=== PATIENT | female | born 1990 | race American Indian/Alaskan Native ===

== ENCOUNTER 2019-06-23 16:39 | Outpatient (CLI) | payer OTHER ==
[2019-06-23] MEDS ORDERED: LACTATED RINGERS 1,000 ML IV SCH (17:00)
[2019-06-23 17:01] LABS: Bacteria,Urine 1+ /HPF (Negative); Bilirubin,Urine NEG (Negative); Blood,Urine NEG (Negative); Color,Urine Yellow (Yellow); Mucus,Urine 1+ /HPF; Protein,Urine <15 mg/dL mg/dL (Negative); Urobilinogen,Urine < 2.0 mg/dL (<2.0)
[2019-06-23 19:00] VITALS: BP 126/74
== END 2019-06-23 19:44 | disposition home or self-care (01) ==
LOC: TRG 16:39
PROVIDERS: ATTEND Obstetrics & Gynecology
DX: O26.853 Spotting complicating pregnancy, third trimester (principal); Z3A.29 29 weeks gestation of pregnancy
CPT/HCPCS: 81001; 96360; 96361; J7120

== ENCOUNTER 2019-09-07 17:44 | Outpatient (CLI) | payer OTHER ==
[2019-09-07] MEDS ORDERED: NITRAZINE (URINE TESTING PAPER) MC ONE (18:04)
[2019-09-07 18:23] VITALS: BP 109/74
== END 2019-09-07 18:56 | disposition home or self-care (01) ==
LOC: TRG 17:44
PROVIDERS: ATTEND Obstetrics & Gynecology
DX: O47.1 False labor at or after 37 completed weeks of gestation (principal); Z3A.40 40 weeks gestation of pregnancy
CPT/HCPCS: 59025

== ENCOUNTER 2021-04-05 16:48 | Outpatient (CLI) | payer OTHER ==
[2021-04-05] MEDS ORDERED: ACETAMINOPHEN 325 MG TAB PO ONE (18:11)
[2021-04-05] MEDS ORDERED: LACTATED RINGERS 500 ML IV SCH (18:30)
[2021-04-05 18:48] LABS: Bacteria,Urine 1+ /HPF (Negative); Bilirubin,Urine NEG (Negative); Blood,Urine NEG (Negative); Color,Urine Amber (Yellow); Mucus,Urine 3+ /HPF
--- NOTE | 2021-04-05 19:20 | Ultrasound Report ---
ULTRASOUND OBSTETRIC LIMITED ULTRASOUND BIOPHYSICAL PROFILE INDICATION / CLINICAL INFORMATION: HEADACHES. COMPARISON: None available. FINDINGS: BREATHING MOVEMENT = 2 GROSS BODY MOVEMENT = 2 TONE = 2 QUALITATIVE AMNIOTIC FLUID VOLUME = 2 TOTAL BIOPHYSICAL SCORE = 8/8 AMNIOTIC FLUID INDEX (cm) = 10.5 PRESENTATION: Cephalic. HEART RATE (beats per minute): 143 ADDITIONAL FINDINGS: None. IMPRESSION: 1. Biophysical Score = 8/8 Signer Name: Rosalino Lund MD Signed: 04/05/2021 7:15 PM Workstation Name: [id number]
[2021-04-05 20:08] LABS: Hematocrit 33.5 % (30.3-42.9); Hemoglobin 11.4 gm/dl (10.1-14.3); Mean Corpuscular HGB Conc 34 % (30-34); Mean Corpuscular Volume 94 fl (79-97); Red Blood Count 3.55 M/mm3 (3.65-5.03)
[2021-04-05 20:14] LABS: Alanine Aminotransferase 9 units/L (7-56); Platelet Count 238 K/mm3 (140-440); Uric Acid 3.7 mg/dL (3.5-7.6)
[2021-04-05 20:21] VITALS: BP 109/59
== END 2021-04-05 21:31 | disposition home or self-care (01) ==
LOC: TRG 16:48 → APU 16:50 → TRG 21:31
PROVIDERS: ATTEND Obstetrics & Gynecology
DX: O13.3 Gestational [pregnancy-induced] hypertension without significant proteinuria, third trimester (principal); Z3A.37 37 weeks gestation of pregnancy
CPT/HCPCS: 36415; 76815; 76819; 81001; 82565; 83615; 84450; 84460; 84550; 85027; J7120

== ENCOUNTER 2021-04-13 10:04 | Inpatient (IN) | payer OTHER ==
[2021-04-13] MEDS ORDERED: LACTATED RINGERS 1,000 ML ONE (10:40)
[2021-04-13] MEDS ORDERED: BICITRA ORAL LIQD 30ML PO ONE (12:15)
[2021-04-13] MEDS ORDERED: LACTATED RINGERS 1,000 ML IV SCH (12:30)
[2021-04-13 12:35] LABS: Basophils % (Auto) 0.3 % (0.0-1.8); Eosinophils # (Auto) 0.1 K/mm3 (0.0-0.4); Eosinophils % (Auto) 0.6 % (0.0-4.3); Hematocrit 37.2 % (30.3-42.9); Hemoglobin 12.8 gm/dl (10.1-14.3); Lymphocytes # (Auto) 1.8 K/mm3 (1.2-5.4); Lymphocytes % (Auto) 22.3 % (13.4-35.0); Mean Corpuscular HGB Conc 34 % (30-34); Mean Corpuscular Volume 94 fl (79-97); Monocytes # (Auto) 0.4 K/mm3 (0.0-0.8); Monocytes % (Auto) 4.8 % (0.0-7.3); Platelet Count 340 K/mm3 (140-440); Red Blood Count 3.97 M/mm3 (3.65-5.03); Red Cell Distribution Width 13.2 % (13.2-15.2)
[2021-04-13] MEDS ORDERED: OXYTOCIN DRIP 30 UNITS/500 ML BAG IV SCH ×2 (13:00→20:00)
[2021-04-13] MEDS ORDERED: METOCLOPRAMIDE 10 MG/2 ML INJ IV NR (13:00)
[2021-04-13] MEDS ORDERED: FAMOTIDINE 20 MG/2 ML INJ IV NR (13:00)
--- NOTE | 2021-04-13 15:47 | Anesthesia Day of Surgery ---
Anesthesia Day of Surgery - Day of Surgery Patient Examined: Yes Patient H&P Reviewed: Yes Patient is NPO: Yes Beta Blockers: No Cardiac Clearance: No Pulmonary Clearance: No Yovany's Test: Negative
[2021-04-13] MEDS ORDERED: ONDANSETRON 4 MG/2 ML INJ IV PRN (15:48)
[2021-04-13] MEDS ORDERED: NALOXONE 0.4 MG/1 ML INJ IV PRN ×2 (15:48→19:07)
[2021-04-13] MEDS ORDERED: HYDROmorphone 1 MG/1 ML INJ IV PRN (15:48)
--- NOTE | 2021-04-13 15:48 | Anesthesia Consultation ---
Anesthesia Consult and Med Hx Date of service: 04/13/21 - Airway Anesthetic Teeth Evaluation: Good ROM Head & Neck: Adequate Mental/Hyoid Distance: Adequate Mallampati Class: Class II Intubation Access Assessment: Probably Good - Pulmonary Exam CTA: Yes - Cardiac Exam Cardiac Exam: RRR - Pre-Operative Health Status ASA Pre-Surgery Classification: ASA2, ASA3 Proposed Anesthetic Plan: Spinal - Pulmonary Hx Smoking: Yes Hx Asthma: No Hx Respiratory Symptoms: No SOB: No COPD: No Hx Pneumonia: No Hx Sleep Apnea: No - Cardiovascular System Hx Hypertension: Yes (during ) Hx Coronary Artery Disease: No Hx Heart Attack/AMI: No Hx Angina: No Hx Percutaneous Transluminal Coronary Angioplasty (PTCA): No Hx Cardia Arrhythmia: No Hx Pacemaker: No Hx Internal Defibrillator: No Hx Valvular Heart Disease: No Hx Heart Murmur: No Hx Peripheral Vascular Disease: No - Central Nervous System Hx Neuromuscular Disorder: No Hx Seizures: No CVA: No Hx Back Pain: Yes Hx Psychiatric Problems: No - Gastrointestinal Hx Ulcer: No Hx Gastroesophageal Reflux Disease: Yes - Endocrine Hx Renal Disease: No Hx End Stage Renal Disease: No Hx Cirrhosis: No Hx Liver Disease: No Hx Insulin Dependent Diabetes: No Hx Non-Insulin Dependent Diabetes: No Hx Thyroid Disease: Yes (enlarged Thyroid) Hx Hypothyroidism: No Hx Hyperthyroidism: No - Hematic Hx Anemia: No Hx Sickle Cell Disease: No - Other Systems Hx Alcohol Use: No Hx Substance Use: No Hx Cancer: No Hx Obesity: Yes
[2021-04-13] MEDS ORDERED: WATER FOR IRRIG STERILE 1,500 ML BOTTLE IR ONE (16:40)
[2021-04-13] MEDS ORDERED: SODIUM CHLORIDE 0.9% IRR 1,500 ML BOTTLE IR ONE (16:40)
[2021-04-13] MEDS ORDERED: ceFAZolin/STERILE WATER 2 GM/20 ML SYRINGE IV ONE (16:40)
[2021-04-13] MEDS ORDERED: ceFAZolin 1 GM VIAL ONE (16:56)
[2021-04-13] MEDS ORDERED: ONDANSETRON 4 MG/2 ML INJ ONE ×2 (17:00→17:13)
[2021-04-13] MEDS ORDERED: dexAMETHasone 20 MG/5 ML VIAL ONE (17:13)
[2021-04-13] MEDS ORDERED: KETOROLAC 30 MG/1 ML INJ ONE (17:13)
[2021-04-13] MEDS ORDERED: BUPIVACAINE/PF (0.25%) 2.5 MG/ML 30 ML VIAL INFILTRATI ONE ×2 (17:13)
--- NOTE | 2021-04-13 18:40 | History and Physical Report ---
History of Present Illness Date of examination: 04/13/21 Date of admission: 04/13/21 10:04 Chief complaint: here for scheduled repeat section History of present illness: at 38.4wks by LMP c/w [facility] care at [facility] and [facility]. Pt treated for chronic HTN on labetalol 200mg bid and pt states she took her last med last evening. pt admits to movement, denies LOF, Vag bleed or feeling ctx. Pt denies headache. Pt desires her c/section to be delayed until FOB arrives because he was getting his citizenship today. labs with A positive, neg screen, rubella immune, HIV, RPR and HepsAg negative. GBS+ Past History Past Medical History: hypertension (pt on labetalol 200mg bid), other (morbid obesity,) Past Surgical History: section [employer] History: herpes (no active lesions and valtrex med suppresion at 36wks) Social history: no significant social history - Obstetrical History Expected Date of Delivery: 04/23/21 Actual Gestation: 38 Week(s) 4 Day(s) : 2 Hx # Term Pregnancies: 1 Number of Living Children: 1 Medications and Allergies Allergies Allergy/AdvReac Type Severity Reaction Status Date / Time No Known Allergies Allergy Verified 06/23/19 16:05 Home Medications Medication Instructions Recorded Confirmed Last Taken Type Vitamin 1 tab PO DAILY 09/10/19 04/05/21 2 Weeks Ago History ~03/22/21 Valtrex 500 mg PO DAILY 09/10/19 04/05/21 04/04/21 History Ferrous Sulfate [Feosol 325 MG tab] 325 mg PO QDAY 30 Days #30 tablet 09/13/19 04/05/21 1 Month Ago Rx ~03/05/21 labetaloL 1 tab PO BID 04/05/21 04/05/21 04/04/21 History Active Meds: Active Medications Famotidine (Famotidine 20 Mg/2 Ml Inj) 20 mg IV PREOP NR Stop: 04/13/21 23:59 Last Admin: 04/13/21 12:28 Dose: 20 mg Documented by: Hydromorphone HCl (Hydromorphone 1 Mg/1 Ml Inj) 0.5 mg IV Q5M PRN PRN Reason: BREAK Lactated Ringer's (Lactated Ringers) 1,000 mls @ 2,250 mls/hr IV PREOP APRIL Stop: 04/14/21 12:57 Oxytocin/Sodium Chloride (Pitocin/Ns 30 Unit/500ml) 30 units in 500 mls @ 0 mls/hr IV TITR APRIL; Protocol Metoclopramide HCl (Metoclopramide 10 Mg/2 Ml Inj) 10 mg IV PREOP NR Stop: 04/13/21 23:59 Last Admin: 04/13/21 12:28 Dose: 10 mg Documented by: Naloxone HCl (Naloxone 0.4 Mg/1 Ml Inj) 0.2 mg IV Q2MIN PRN PRN Reason: Res Rate </= 8 or 02 SAT < 92% Ondansetron HCl (Ondansetron 4 Mg/2 Ml Inj) 4 mg IV Q8H PRN PRN Reason: Nausea And Vomiting Review of Systems All systems: negative (none) - Vital Signs Vital signs: Vital Signs Pulse BP 122 H 127/72 04/13/21 10:26 04/13/21 10:26 Temp Pulse Resp BP Pulse Ox 90 111/71 97 04/13/21 15:24 04/13/21 15:01 04/13/21 15:24 - Physical Exam Breasts: Positive: deferred Cardiovascular: Regular rate Lungs: Positive: Normal air movement Abdomen: Positive: normal appearance Genitourinary (Female): Positive: normal external genitalia Vagina: Positive: normal moisture Uterus: Positive: enlarged Extremities: Positive: normal - Obstetrical FHR: category 1 Uterine Contraction Monitor Mode: External Uterine Contraction Pattern: Absent Results Result Diagrams: 04/13/21 10:36 Abnormal lab results 04/13/21 Range/Units 10:36 Seg Neutrophils % 72.0 H (40.0-70.0) % All other labs normal. Assessment and Plan Term IUP with chronic HTN, morbid obesity, previous c/section x1; GBS+ 1. Admit for scheduled repeat c/section 2. Resume labetalol for chronic HTN, will start at 100mg bid and titrate upwards if BP remains elevated 3. Pt told the OR not available due to emergent case by another provider, therefore will wait until her arrives 4. NICU and Anesthesiologist notified. Plan of care discussed with risks, benefits and alternatives of contraception. All questions encouraged and answered.
--- NOTE | 2021-04-13 18:44 | Progress Note ---
Spinal Anesthesia Block - Spinal Anesthesia Block Start Time: 16:30 Stop Time: 16:37 Performed by:: BAN KUHN Procedure: Patient IDed, H&P reviewed, all questions and concerns were answered, and consent was signed. Timeout was performed at bedside. Patient in sitting position. Sterile prep and drape was performed. [3] ml of 1% lidocaine skin wheal at L[3]- L [4]. Needle introducer advanced. 25 gauge spinal needle advanced. Clear, free flowing CSF. negative blood, negative paresthesia. Spinal dose given. All needles removed. Patient tolerated procedure.
--- NOTE | 2021-04-13 18:45 | Progress Note ---
Regional Anesthesia Block - Regional Anesthesia Block Start Time: 18:42 Stop Time: 18:45
--- NOTE | 2021-04-13 19:00 | Procedure Note ---
OB Delivery Note - Delivery Date of Delivery: 04/13/21 Surgeon: HELEN LAFLEUR Estimated blood loss: other (794cc) - Section Preop diagnosis: repeat Postop diagnosis: same (lysis of anterior wall adhesions to uterus, bladder and omentum) section procedure: repeat low transverse Disposition: floor Complications: none Narrative: Date: 04/13/21 Surgeon: Helen Lafleur MD Preop Dx: IUP at 38.4wks, chronic HTN, morbid obesity, GBS+ Postop Dx: same Procedure : Repeat low section Anesthesia: Spinal Intake: 1200c Output: 100cc concentrated EBL: 794cc After the risks, benefits and alternatives of procedure discussed, patient signed consents and was taken to the operating room. Pt was given spinal anesthesia. After same was adequate, patient was prepped and draped in the usual sterile fashion. Cifuentes catheter in place and draining clear concentrated urine. Pt was given prophylactic antibiotic per protocol and time out was done Pfannenstiel skin incision was made and taken sharply to the fascia and the incision extended using electrocautery. Superior edge of the fascia was grasped with vincent clamps and the rectus muscle using blunt dissection and also using electrocautery. Lower portion of the fascia also sharply. Rectus muscle in the midline and Peritoneal cavity entered sharply then dense adhesions sharply until bladder was visualized. The bladder flap was created sharply using metzenbaum scissors. Lower uterine segment then entered transversely and amniotic sac entered using allys clamps. Light meconium stained fluid noted and copious amount. Uterine incision extended using bandage scissors. Infant delivered, bulb suctioned, cord clamped and baby handed to waiting pediatricians. Placenta then delivered completely and uterine cavity cleared of all clots and debri. The uterus was not exteriorized and closed in 2 layers using 0-monocryl suture in a running locked fashion and then an additional layer of imbrication suture. Hemoblast placed and Excellent hemostasis noted. The gutters were cleared of all clots and debri and anterior peritoneum with scarring and rectus muscle closed using 0-0 vicryl suture. Rectus fascia closed with 0-vicryl suture and subcutaneous tissue copiously irri gated with normal saline and re-approximated using 3-0 vicryl suture. Excellent hemostasis remains. The skin was closed with 4-0 monocryl suture and steristrips placed with pressure dressing. Sponge, lap, instrument and needle counts x2 were normal. Patient tolerated the procedure well and was taken to recovery room stable. Findings: Viable female , APGARS 9/9 and weight 3241g. Meconium stained fluid. Normal uterus, tubes and ovaries. - A at 1 minute: 9 at 5 minutes: 9 Gender: Female (meconium stained fluid; wt 3241g)
[2021-04-13] MEDS ORDERED: MAGNESIUM HYDROXIDE (MOM) ORAL LIQD UDC PO PRN (19:07)
[2021-04-13] MEDS ORDERED: WITCH HAZEL/ GLYCERIN PAD TP PRN (19:07)
[2021-04-13] MEDS ORDERED: SENNOSIDES 8.6 MG TAB PO PRN (19:07)
[2021-04-13] MEDS ORDERED: MORPHINE 4 MG/1 ML INJ IV PRN (19:07)
[2021-04-13] MEDS ORDERED: SIMETHICONE 80 MG CHEW TAB PO PRN (19:07)
[2021-04-13] MEDS ORDERED: KETOROLAC 30 MG/1 ML INJ IV PRN (19:07)
[2021-04-13] MEDS ORDERED: LANOLIN/ZINC/DIMETHICONE (LANSINOH) 7 GM TP PRN (19:07)
[2021-04-13] MEDS ORDERED: miSOPROStol 200 MCG TAB PR ONE (20:10)
--- NOTE | 2021-04-13 20:38 | Post Anesthesia Evaluation ---
- Post Anesthesia Evaluation Patient Participated: Yes Airway Patent: Yes Stable Respiratory Function: Yes Nausea/Vomiting: No Temp > 96.8F: Yes Pain Manageable: Yes Adequeate Hydration: Yes Anesthesia Complications: No Block Receding Appropriately: Yes Patient on Ventilator: No
--- NOTE | 2021-04-14 06:18 | Progress Note ---
Assessment and Plan POD#1 C/Section doing fair with gas pain; Chronic HTN stable 1. routine post op care 2. May have MOM or simethecone prn 3. resume antihypertensive meds when BP>130/85; hold for now 4. Will remove dressing on 04/15/21 All questions encouraged an answered Subjective Date of service: 04/14/21 Principal diagnosis: POD#1 C/Section, Chronic HTN, morbid obesity Interval history: Pt tolerating clears diet, no flatus, pain controlled with meds, denies hea dache. Pt c/o gas pains and desires milk of magnesia. Pt still with robles cath draining clear urine. Vag bleed less than a period Objective - Constitutional Vitals: Vital Signs - 12hr 04/13/21 04/13/21 04/13/21 18:36 18:40 18:45 Temperature 97.6 F Pulse Rate 73 69 74 Respiratory 14 12 20 Rate Blood Pressure 136/68 123/75 115/87 Blood Pressure [Left] O2 Sat by Pulse 98 98 98 Oximetry O2 Sat by Pulse Oximetry [ Bilateral Throughout] 04/13/21 04/13/21 04/13/21 19:00 19:15 19:30 Temperature 97.5 F L Pulse Rate 77 66 82 Respiratory 18 16 21 Rate Blood Pressure 120/66 116/71 107/63 Blood Pressure [Left] O2 Sat by Pulse 98 98 98 Oximetry O2 Sat by Pulse Oximetry [ Bilateral Throughout] 04/14/21 04/14/21 04/14/21 00:00 01:11 02:02 Temperature 98.6 F Pulse Rate 88 Respiratory 18 Rate Blood Pressure 109/57 Blood Pressure 112/70 [Left] O2 Sat by Pulse Oximetry O2 Sat by Pulse 98 Oximetry [ Bilateral Throughout] 04/14/21 04:00 Temperature 98.6 F Pulse Rate 68 Respiratory 18 Rate Blood Pressure Blood Pressure 119/78 [Left] O2 Sat by Pulse Oximetry O2 Sat by Pulse Oximetry [ Bilateral Throughout] General appearance: Present: no acute distress - Neck Neck: normal ROM - Breasts Breasts: normal - Cardiovascular Rhythm: regular Extremities: no ischemia - Gastrointestinal General gastrointestinal: Present: non-tender, other (Incision with dressing C/D/I) - Neurologic Neurologic: moves all extremities - Psychiatric Psychiatric: appropriate mood/affect - Labs CBC & Chem 7: 04/13/21 10:36 Labs: Abnormal lab results 04/13/21 Range/Units 10:36 Seg Neutrophils % 72.0 H (40.0-70.0) % Medications & Allergies - Medications Allergies/Adverse Reactions: Allergies No Known Allergies Allergy (Verified 06/23/19 16:05) Home Medications: Home Medications Medication Instructions Recorded Confirmed Last Taken Type Vitamin 1 tab PO DAILY 09/10/19 04/05/21 2 Weeks Ago History ~03/22/21 Valtrex 500 mg PO DAILY 09/10/19 04/05/21 04/04/21 History Ferrous Sulfate [Feosol 325 MG tab] 325 mg PO QDAY 30 Days #30 tablet 09/13/19 04/05/21 1 Month Ago Rx ~03/05/21 labetaloL 1 tab PO BID 04/05/21 04/05/21 04/04/21 History Ibuprofen [Motrin] 800 mg PO Q8HR PRN #40 tablet 04/13/21 Unknown Rx oxyCODONE /ACETAMINOPHEN [Percocet 1 tab PO Q4HR PRN #30 tab 04/13/21 Unknown Rx 5/325] Active Medications: Generic Name Dose Route Start Last Admin Trade Name Freq PRN Reason Stop Dose Admin Ferrous Sulfate 325 mg 04/14/21 10:00 Ferrous Sulfate 325 Mg Tab PO QDAY APRIL Hydromorphone HCl 0.5 mg 04/13/21 15:48 Hydromorphone 1 Mg/1 Ml Inj IV Q5M PRN BREAK Lactated Ringer's 1,000 mls @ 2,250 mls/hr 04/13/21 12:30 Lactated Ringers IV 04/14/21 12:57 PREOP APRIL Oxytocin/Sodium Chloride 30 units in 500 mls @ 0 mls/hr 04/13/21 13:00 Pitocin/Ns 30 Unit/500ml IV TITR APRIL Protocol As Directed Oxytocin/Sodium Chloride 30 units in 500 mls @ 40 mls/hr 04/13/21 20:00 Pitocin/Ns 30 Unit/500ml IV TITR APRIL Protocol Cefazolin Sodium 2 gm/ Sodium 100 mls @ 200 mls/hr 04/14/21 02:00 04/14/21 02:42 Chloride IV 04/14/21 18:29 200 mls/hr Q8H APRIL Administration Protocol Ibuprofen 800 mg 04/13/21 19:07 Ibuprofen 800 Mg Tab PO Q6H PRN Pain, Moderate (4-6) Ketorolac Tromethamine 15 mg 04/13/21 19:07 04/14/21 01:20 Ketorolac 30 Mg/1 Ml Inj IV 04/18/21 19:06 15 mg Q6H PRN Administration Pain, Mild (1-3) Labetalol HCl 200 mg 04/13/21 22:00 04/14/21 01:11 Labetalol 200 Mg Tab PO Not Given BID APRIL Magnesium Hydroxide 30 ml 04/13/21 19:07 Magnesium Hydroxide (Mom) Oral Liqd Udc PO QHS PRN Constip Unrelieved By Senna Morphine Sulfate 4 mg 04/13/21 19:07 04/13/21 22:13 Morphine 4 Mg/1 Ml Inj IV 4 mg Q4H PRN Administration Pain , Severe (7-10) Multi-Ingredient Ointment 1 applic 04/13/21 19:07 Lanolin/Zinc/Dimethicone (Lansinoh) 7 Gm TP PRN PRN dryness/cracking Multivitamins/Iron/Calcium 1 each 04/14/21 10:00 [id number] Fumarate-Folic Acid Vit Tab PO QDAY APRIL Naloxone HCl 0.2 mg 04/13/21 15:48 Naloxone 0.4 Mg/1 Ml Inj IV Q2MIN PRN Res Rate </= 8 or 02 SAT < 92% Naloxone HCl 0.1 mg 04/13/21 19:07 Naloxone 0.4 Mg/1 Ml Inj IV Q2MIN PRN Res Rate </= 8 or 02 SAT < 92% Ondansetron HCl 4 mg 04/13/21 15:48 Ondansetron 4 Mg/2 Ml Inj IV Q8H PRN Nausea And Vomiting Oxycodone/Acetaminophen 2 tab 04/13/21 19:07 Oxycodone /Acetaminophen 5-325mg Tab PO Q6H PRN Pain, Moderate (4-6) Senna 17.2 mg 04/13/21 19:07 Sennosides 8.6 Mg Tab PO QHS PRN Constipation Simethicone 80 mg 04/13/21 19:07 Simethicone 80 Mg Chew Tab PO Q6H PRN Gas pain Sodium Chloride 10 ml 04/13/21 20:00 Sodium Chloride 0.9% 10 Ml Flush Syringe IV 04/14/21 19:59 PRN NR Witch Melania/Glycerin 1 each 04/13/21 19:07 Witch Melania/ Glycerin Pad TP PRN PRN Hemorrhoids/cleansing/soothing
[2021-04-14] MEDS: oxyCODONE /ACETAMINOPHEN 5-325MG TAB PO PRN ×3 (08:00→22:21)
[2021-04-14 08:17] LABS: Hematocrit 33.7 % (30.3-42.9); Hemoglobin 11.8 gm/dl (10.1-14.3)
[2021-04-14] MEDS ORDERED: ceFAZolin/NS 1 GM/50 ML 0 GM/0 ML BAG IV ONE (11:53)
[2021-04-14] MEDS: FERROUS SULFATE 325 MG TAB PO SCH (15:29)
[2021-04-14] MEDS: PRENATAL VIT27-FE FUMARATE-FOLIC ACID VIT TAB PO SCH (15:30)
[2021-04-14] MEDS ORDERED: miSOPROStol 200 MCG TAB PR ONE (19:20)
[2021-04-14] MEDS: IBUPROFEN 800 MG TAB PO PRN (23:56)
[2021-04-15] MEDS: FERROUS SULFATE 325 MG TAB PO SCH (10:23)
[2021-04-15] MEDS: PRENATAL VIT27-FE FUMARATE-FOLIC ACID VIT TAB PO SCH (10:23)
[2021-04-15] MEDS: DOCUSATE SODIUM 100 MG CAP PO SCH (10:23)
[2021-04-15] MEDS: oxyCODONE /ACETAMINOPHEN 5-325MG TAB PO PRN (10:44)
--- NOTE | 2021-04-15 13:07 | Progress Note ---
Assessment and Plan A: /postop day 2 S/P repeat LTCS. Chronic hypertension. Obesity. P: Monitor BPs. Encouraged ambulation. Anticipate discharge home tomorrow if patient continues to do well. Subjective - Subjective Date of service: 04/15/21 Principal diagnosis: POD#2 C/Section, Chronic HTN, morbid obesity Patient reports: appetite normal, voiding normally, pain well controlled, flatus, ambulating normally, no dizzy ambulation, no bowel movement, no nauseated [place]: doing well Objective - Vital Signs Latest vital signs: Vital Signs Temp Pulse Resp BP BP Pulse Ox Pulse Ox 04/15/21 12:28 98.0 F 79 20 124/77 96 04/15/21 10:23 84 130/85 04/15/21 10:22 84 130/85 04/15/21 09:00 98 04/15/21 08:29 97.5 F L 66 20 107/78 98 04/15/21 00:20 97.3 F L 73 20 118/73 97 04/14/21 20:20 99 04/14/21 20:17 97.8 F 79 20 111/78 99 04/14/21 18:09 98 04/14/21 16:31 97.6 F 78 20 123/76 100 04/14/21 16:00 98 04/14/21 14:00 98 Intake and Output 04/14/21 04/15/21 04/15/21 23:59 07:59 15:59 Intake Total 840 600 120 Output Total 350 Balance 490 600 120 Intake: Oral 600 600 120 Intake, Free Water 240 Output: Urine 350 Void 350 Other: Total, Intake Amount 120 240 120 Total, Output Amount 350 # Voids Void 1 1 1 - Exam Cardiovascular: Present: Regular rate Lungs: Present: Clear to auscultation Abdomen: Present: normal appearance, soft, normal bowel sounds. Absent: distention, tenderness, guarding, rigidity Uterus: Present: normal, firm, fundal height below umbilicus. Absent: bogginess, tenderness Extremities: Present: normal. Absent: tenderness Incision: Present: normal, dry, intact
[2021-04-15] MEDS: IBUPROFEN 800 MG TAB PO PRN (15:28)
[2021-04-16] MEDS: oxyCODONE /ACETAMINOPHEN 5-325MG TAB PO PRN ×2 (01:18→08:25)
--- NOTE | 2021-04-16 07:10 | Progress Note ---
Assessment and Plan A: /postop day 2 S/P repeat LTCS. Obesity. Chronic hypertension. P: Discharge patient home today. Discussed with patient /postop discharge instructions and warning signs. Advised patient to continue taking her vitamins and Labetalol at home (Labetalol 200 mg po BID). Advised patient to avoid intercourse, lifting, housework, driving, tub baths (patient may take showers). Advised patient to follow up at [facility] office in 2 days. Patient voiced understanding of all instructions. Subjective - Subjective Date of service: 04/16/21 Principal diagnosis: /postop day 3 S/P repeat LTCS Interval history: Patient desires discharge home today. Patient denies headache, visual disturbance, chest pain, SOB, leg pain, or any other problems. Patient reports: appetite normal, voiding normally, pain well controlled, flatus, ambulating normally, no dizzy ambulation, no nauseated : doing well Objective - Vital Signs Latest vital signs: Vital Signs Temp Pulse Resp BP BP Pulse Ox Pulse Ox 04/16/21 04:47 97.9 F 95 H 20 134/76 98 04/16/21 01:33 98.4 F 92 H 18 127/71 98 04/16/21 01:18 12 04/15/21 22:20 88 144/69 04/15/21 20:45 98 04/15/21 20:44 97.9 F 98 H 20 135/78 97 04/15/21 15:49 98.0 F 89 20 106/66 95 04/15/21 15:28 20 04/15/21 14:45 99 04/15/21 12:28 98.0 F 79 20 124/77 96 04/15/21 10:23 84 130/85 04/15/21 10:22 84 130/85 04/15/21 09:00 98 04/15/21 08:29 97.5 F L 66 20 107/78 98 Intake and Output 04/15/21 04/15/21 04/16/21 15:59 23:59 07:59 Intake Total 480 240 500 Balance 480 240 500 Intake: Oral 480 240 Intake, Free Water 500 Other: Total, Intake Amount 360 240 # Voids Void 1 1 1 - Exam Cardiovascular: Present: Regular rate Lungs: Present: Clear to auscultation Abdomen: Present: normal appearance, soft, normal bowel sounds, rigidity. Absent: distention, tenderness, guarding Uterus: Present: normal, firm, other (Fundal height at 2 FB below umbilicus). Absent: bogginess, tenderness Incision: Present: dry, intact
--- NOTE | 2021-04-16 07:16 | Discharge Summary ---
Providers - Providers Date of Admission: 04/13/21 10:04 Date of discharge: 04/16/21 Attending physician: GOSIA LAFLEUR Primary care physician: GOSIA LAFLEUR Hospitalization Reason for admission: section Delivery: Procedure: repeat low transverse Incision: normal, dry, intact complications: none Discharge diagnosis: IUP at term delivered [place] baby: female Pertinent studies: Labs Hospital course: Stable hospital course. Condition at discharge: Good Disposition: 01 HOME / SELF CARE / HOMELESS - Discharge Diagnoses (1) Term delivered Status: Acute Plan - Discharge Medications Prescriptions: Ibuprofen [Motrin] 800 mg PO Q8HR PRN #40 tablet PRN Reason: Pain, Mild (1-3) oxyCODONE /ACETAMINOPHEN [Percocet 5/325] 1 tab PO Q4HR PRN #30 tab PRN Reason: Pain , Severe (7-10) - Provider Discharge Summary Activity: routine, no sex for 6 weeks, no heavy lifting 4 weeks, no strenuous exercise Diet: routine Instructions: routine Additional instructions: Continue taking your Vitamin daily at home. Continue taking Labetalol 200 mg by mouth every 12 hours at home. Follow up at [facility] office in 2 days. Call your doctor immediately for: * Fever > 100.5 * Heavy vaginal bleeding ( >1 pad per hour) * Severe persistent headache * Shortness of breath * Reddened, hot, painful area to leg or breast * Drainage or odor from incision. * Keep incision clean and dry at all times and follow doctor's instructions regarding bathing/showering - Follow up plan Follow up: GOSIA LAFLEUR MD [Primary Care Provider] - 48 Hours
[2021-04-16] MEDS: FERROUS SULFATE 325 MG TAB PO SCH (09:43)
[2021-04-16] MEDS: DOCUSATE SODIUM 100 MG CAP PO SCH (09:43)
[2021-04-16] MEDS: PRENATAL VIT27-FE FUMARATE-FOLIC ACID VIT TAB PO SCH (09:43)
[2021-04-16 13:29] VITALS: BP 132/72
== END 2021-04-16 14:45 | disposition home or self-care (01) | DRG 787 ==
LOC: APU 10:04 → OB 20:24
PROVIDERS: ADMIT Obstetrics & Gynecology; ATTEND Obstetrics & Gynecology
PROC: 10D00Z1 Extraction of Products of Conception, Low, Open Approach (ICD-10-PCS; principal; 2021-04-13)
DX: O34.211 Maternal care for low transverse scar from previous cesarean delivery (principal); O10.92 Unspecified pre-existing hypertension complicating childbirth; O99.214 Obesity complicating childbirth; O77.0 Labor and delivery complicated by meconium in amniotic fluid; O99.334 Smoking (tobacco) complicating childbirth; F17.200 Nicotine dependence, unspecified, uncomplicated; O99.62 Diseases of the digestive system complicating childbirth; Z37.0 Single live birth; K21.9 Gastro-esophageal reflux disease without esophagitis; Z3A.38 38 weeks gestation of pregnancy; E66.01 Morbid (severe) obesity due to excess calories; O99.824 Streptococcus B carrier state complicating childbirth; Z20.822 Contact with and (suspected) exposure to COVID-19
CPT/HCPCS: 36415; 85014; 85018; 85025; 86592; 86850; 86900; 86901; 88307; G0378; C1765; J0690; J1100; J1885; J2270; J2405; J2765; J3490; J7120; U0003